=== PATIENT | female | born 1960 | race Caucasian/White ===

== ENCOUNTER 2017-02-28 18:53 | Inpatient (IN) | payer BC ==
[~2017-02-28] VITALS: Ht 157.5 cm; Wt 60.0 kg
[2017-02-28] MEDS ORDERED: SYNJARDY 12.5-11 TAB PO (19:13)
[2017-02-28] MEDS ORDERED: ALEVE220 M1 PO (19:13)
--- NOTE | 2017-02-28 19:15 | NUR ---
PT ASKED TO WAIT IN WAITING ROOM UNTIL A ROOM OPENS UP FOR TREATMENT. PT IN WC, W/ BY SIDE. PT IN STABLE CONDITION.
--- NOTE | 2017-02-28 19:38 | NUR ---
PT TRANSFERED TO ER ROOM 9 VIA WC. PT THEN AMBULATED TO BATHROOM UNASSISTED. @ BEDSIDE.
--- NOTE | 2017-02-28 19:39 | NUR ---
PT. WITH C/O DIABETIC FOOT ULCER TO SOLE OF LEFT FOOT FOR APPROX. 2-3 WEEKS. EDEMA NOTED TO LEFT FOOT. PLUSES +.
--- NOTE | 2017-02-28 20:27 | NUR ---
IVF, IV ABT. IV PAIN MED AND IV ANTIEMETIC GIVEN PER MD ORDER.
[2017-02-28 20:35] LABS: HEMOGLOBIN 12.8 g/dl (12.0-16.0); IMMATURE GRANULOCYTES 0.3 % (0.0-1.0); MEAN CELL VOLUME 89.6 fL CALC (80.0-100.0); MEAN CORPUSCULAR HGB 30.2 pG CALC (26.0-32.0); MEAN CORPUSCULAR HGB CONC 33.7 g/L CALC (32.0-36.0); NEUT# 7.5 thou/uL (2.00-7.15); RED BLOOD COUNT 4.24 mill/uL (4.20-5.60); RED CELL DISTRI WIDTH 11.9 % (11.5-15.5)
--- NOTE | 2017-02-28 20:44 | NUR ---
TURKEY SANDWICH GIVEN TO PT.
[2017-02-28 20:49] LABS: ALBUMIN 4.1 g/dL (3.2-5.0); ALKALINE PHOSPHATASE 139 u/l (38-126); ANION GAP 21 (6-22 (CALC)); BILIRUBIN, TOTAL 0.7 mg/dL (0.0-1.4); BUN 16 mg/dL (7-17); BUN/CREATININE RATIO 24 (12-20 (CALC)); CALCIUM 10.1 mg/dL (8.4-10.2); CARBON DIOXIDE 21 mmol/l (22-30); CHLORIDE 104 mmol/l (95-108); CREATININE 0.7 mg/dL (0.5-1.0); GFR > 60 ML/MIN (>=60 (CALC)); GFR FOR AFR.AMER. > 60 ML/MIN (>=60 (CALC)); GLUCOSE 148 mg/dL (65-105); POTASSIUM 3.9 mmol/l (3.5-5.1); SGOT/AST 17 u/l (14-36); SGPT/ALT 30 u/l (9-52); SODIUM 143 mmol/l (137-146)
--- NOTE | 2017-02-28 21:28 | NUR ---
pt. states her left foot pain is completly resolved.
--- NOTE | 2017-02-28 21:29 | NUR ---
PT. ATE 50% OF TURKEY SANDWICH.
--- NOTE | 2017-02-28 22:01 | NUR ---
MD IN ROOM TO DISCUSS CLINICAL FINDINGS WITH PT. AND ALSO MAKE HER AWARE OF ADMISSION. VERBALIZED UNDERSTANDING.
--- NOTE | 2017-02-28 22:45 | NUR ---
Admission Note Report Given to: MATI DICKERSON Transported by: Wheelchair X Stretcher Transported with: X Nurse Transporter X Patent IV O2 Janitorial Maintenance Worker
--- NOTE | 2017-02-28 23:28 | NUR ---
PT. TAKEN TO NM VIA STRETCHER.
--- NOTE | 2017-02-28 23:29 | NUR ---
PATIENT ARRIVED TO THE FLOOR IN STABLE CONDITION VIA STRETCHER AND ACCOMPANIED BY VIVIAN, ED STAFF. PATIENT SETTLED TO BED. [facility] PATIENT TO ROOM CALL SYSTEM. BED IN LOW POSITION AND CALL LIGHT INN REACH.
[2017-02-28 23:30] VITALS: BP 117/76
--- NOTE | 2017-03-01 04:00 | NUR ---
NO APPARENT ACUTE CHANGES NOTED IN PATIENT'S CONDITION.
[2017-03-01 04:40] VITALS: BP 112/66
[2017-03-01 05:27] LABS: HEMATOCRIT 33.6 % (37.0-47.0); MEAN CELL VOLUME 91.6 fL CALC (80.0-100.0); MEAN CORPUSCULAR HGB CONC 32.7 g/L CALC (32.0-36.0); RED BLOOD COUNT 3.67 mill/uL (4.20-5.60)
[2017-03-01 05:41] LABS: CHOLESTEROL HDL RATIO 4.9 (<4.4 (CALC))
[2017-03-01 06:37] LABS: URINE BILIRUBIN - DIPSTICK NEGATIVE (NEGATIVE); URINE BLOOD DIPSTICK MODERATE (NEGATIVE); URINE CLARITY CLEAR; URINE COLOR YELLOW; URINE GLUCOSE - DIPSTICK >=1000 mg/dL (NEGATIVE); URINE KETONE 40 mg/dL (NEGATIVE); URINE LEUK ESTERASE NEGATIVE (NEGATIVE); URINE PH 5.5 (4.5-8.0); URINE PROTEIN - DIPSTICK NEGATIVE (NEG-TRACE); URINE SPECIFIC GRAVITY 1.015; URINE UROBILINOGEN - DIPSTICK 0.2 E.U./dL (0.2)
[2017-03-01 06:42] LABS: URINE NITRITE - DIPSTICK POSITIVE (Negative)
[2017-03-01 06:49] LABS: URINE BACTERIA FEW hpf; URINE TRANSITIONAL EPI. CELLS RARE hpf
--- NOTE | 2017-03-01 07:00 | NUR ---
REPORT RECIEVED FROM TUAN THORNE. PT AWAKE ON ENTRY. PT HAS NO COMPLAINTS OF PAIN. SAFETY PRECAUTIONS IN PLACE. CALL LIGHT WITHIN REACH. WILL CONTINUE TO MAKE HOURLY ROUNDS.
[2017-03-01 08:16] VITALS: BP 104/63
--- NOTE | 2017-03-01 13:20 | NUR ---
PT OFF FLOOR WITH STAFF FOR CT.
--- NOTE | 2017-03-01 13:42 | NUR ---
Drug Selected: Vancomycin Age: 56 years Weight: 59 kg Height: 62 in Gender: Female SCR: 0.7 mg/dl Calculated Values: Dosing weight: 59 kg CRCL (ml/min): 72.7 Final Report: Give Vancomycin 1000 mg q12 hrs NEXT TROUGH WILL BE 03/03/17 AT 1130AM
--- NOTE | 2017-03-01 14:18 | NUR ---
PT BACK ON FLOOR FROM CT. PT NOW RESTING IN BED AND IVF RUNNING. IV SIGHT APPEARS HEALTHY. CALL LIGHT WITHIN REACH.
[2017-03-01 16:30] VITALS: BP 117/74
--- NOTE | 2017-03-01 18:00 | NUR ---
PT RESTING IN BED EATING DINNER WITH FAMILY AT BEDSIDE. IV SIGHT APPEARS HEALTHY. SAFETY PRECAUTIONS REINFORCED. CALL LIGHT WITHIN REACH.
--- NOTE | 2017-03-01 19:30 | NUR ---
RESTING IN BED, WATCHING TV, NO DISTRESS NOTED, DENIES NEEDS, RESP ARE EVEN AND UNLABORED, SIGNIFICANT OTHER AT BEDSIDE, CALL FERGUSON AT REACH, ENCOURAGED TO CALL IF NEEDED.
[2017-03-01 19:40] VITALS: BP 117/74
--- NOTE | 2017-03-01 22:51 | NUR ---
PT DENIES PAIN OR NEEDS AT THIS TIME, X2 GUARDS AT BEDSIDE, RESP ARE EVEN AND UNLABORED, PIPERACILLIN INFUSING WITHOUT DIFFICULTY, IV SITE IS INTACT. SOME RESEARCH KENNEL SUPERVISOR COUGH NOTED, ENCOURAGED TO CALL IF NEEDED, CALL FERGUSON AT REACH.
--- NOTE | 2017-03-02 00:29 | NUR ---
PT APPEARS TO BE SLEEPING WITH EYES CLOSED, EASILY AROUSES TO STIMULI, VOICES NO COMPLAINTS, WILL CONTINUE TO MONITOR.
--- NOTE | 2017-03-02 01:00 | NUR ---
VONCOMYCIN INFUSING WITHOUT DIFFICULTY, IV SITE IS FREE OR REDNESS OR EDEMA, PT APPEARS TO BE SLEEPING, RESPONDS TO VERBAL OR PHYSICAL STIMULI, NO DISTRESS NOTED, SAFETY MEASURES IN PLACE, ENCOURAGED TO CALL IF NEEDED, PROVIDED AN EXTRA PILLOW PER REQUEST. CALL FERGUSON AT REACH.
[2017-03-02 05:01] VITALS: BP 112/71
[2017-03-02 05:52] LABS: HEMOGLOBIN 10.4 g/dl (12.0-16.0); MEAN CELL VOLUME 92.5 fL CALC (80.0-100.0); MEAN CORPUSCULAR HGB 30.1 pG CALC (26.0-32.0); MEAN CORPUSCULAR HGB CONC 32.5 g/L CALC (32.0-36.0); RED BLOOD COUNT 3.46 mill/uL (4.20-5.60); RED CELL DISTRI WIDTH 12.1 % (11.5-15.5)
[2017-03-02 06:09] LABS: ANION GAP 20 (6-22 (CALC)); BUN 9 mg/dL (7-17); BUN/CREATININE RATIO 14 (12-20 (CALC)); CALCIUM 9.1 mg/dL (8.4-10.2); CARBON DIOXIDE 15 mmol/l (22-30); CHLORIDE 115 mmol/l (95-108); CREATININE 0.6 mg/dL (0.5-1.0); GFR > 60 ML/MIN (>=60 (CALC)); GFR FOR AFR.AMER. > 60 ML/MIN (>=60 (CALC)); GLUCOSE 103 mg/dL (65-105); POTASSIUM 4.5 mmol/l (3.5-5.1); SODIUM 145 mmol/l (137-146)
--- NOTE | 2017-03-02 07:00 | NUR ---
REPORT RECIEVED FROM TUAN SUAREZ. PT AWAKE ON ENTRY. NO COMPLAINTS OF PAIN FROM PT. IV SIGHT APPEARS HEALTHY. SAFETY PRECAUTIONS REINFORCED. CALL LIGHT WITHIN REACH. WILL CONTINUE TO MAKE HOURLY ROUNDS.
--- NOTE | 2017-03-02 07:25 | NUR ---
DR. FAITH IN ROOM WITH PT.
[2017-03-02 07:55] VITALS: BP 116/62
--- NOTE | 2017-03-02 13:00 | NUR ---
#20 IN LEFT AC NOT INFUSING. NEW IV STARTED. #20 IN THE RIGHT FOREARM.
[2017-03-02 16:40] VITALS: BP 115/75
[2017-03-02 18:00] VITALS: BP 101/64
--- NOTE | 2017-03-02 19:00 | NUR ---
RECEIVED CHANGE OF SHIFT REPORT FROM ESTEBAN FLOWERS. PATIENT LYING IN BED AND APPEARS NOT TO BE IN ANY APPARENT ACUTE DISRESSS. PATIENT DENIES PAIN. FAMILY AT BEDSIDE. WILL CONTINUE TO MOMITOR.
--- NOTE | 2017-03-02 19:07 | NUR ---
REPORT GIVEN TO TUAN THORNE. PT STABLE AT THIS TIME, SHOWS NO SIGNS OF DISTRESS. CALL LIGHT WITHIN REACH.
[2017-03-03] VITALS (12 sets, daily range): BP systolic 96–121; BP diastolic 56–71
--- NOTE | 2017-03-03 | NUR ---
PATIENT RESTING QUIETLY AT THIS TIME. NO APPARENT ACUTE DISTRESS NOTED.
--- NOTE | 2017-03-03 04:00 | NUR ---
NO APPARENT ACUTE CHANGES NOTED IN PATIENT'S CONDITION.
[2017-03-03 05:56] LABS: HEMATOCRIT 31.8 % (37.0-47.0); HEMOGLOBIN 10.4 g/dl (12.0-16.0); MEAN CELL VOLUME 92.2 fL CALC (80.0-100.0); MEAN CORPUSCULAR HGB 30.1 pG CALC (26.0-32.0); MEAN CORPUSCULAR HGB CONC 32.7 g/L CALC (32.0-36.0); RED BLOOD COUNT 3.45 mill/uL (4.20-5.60); RED CELL DISTRI WIDTH 12.4 % (11.5-15.5)
[2017-03-03 06:17] LABS: ANION GAP 20 (6-22 (CALC)); BUN 8 mg/dL (7-17); BUN/CREATININE RATIO 13 (12-20 (CALC)); CALCIUM 9.4 mg/dL (8.4-10.2); CARBON DIOXIDE 14 mmol/l (22-30); CHLORIDE 115 mmol/l (95-108); CREATININE 0.6 mg/dL (0.5-1.0); GFR > 60 ML/MIN (>=60 (CALC)); GFR FOR AFR.AMER. > 60 ML/MIN (>=60 (CALC)); GLUCOSE 142 mg/dL (65-105); POTASSIUM 5.1 mmol/l (3.5-5.1); SODIUM 144 mmol/l (137-146)
--- NOTE | 2017-03-03 07:44 | NUR ---
PT WENT TO OR VIA STRETCHER ACCOMPANIED BY STAFF AND FAMILY. IV SITE IS FREE FROM REDNESS OR EDEMA. CONTINUE TO OBSERVE AND MONITOR.
--- NOTE | 2017-03-03 10:27 | NUR ---
PT RETURNED FROM OR VIA STRETCHER ACCOMPANIED AT 1005 DRESSING INTACT. IV SITE INTACT, SCD'S IN PLACE.
--- NOTE | 2017-03-03 11:00 | NUR ---
ASSESSMENT IS COMPLETED. PT IS HAVING NO C/O PAIN AT THIS TIME. IV SITE IS FREE FROM REDNESS OR EDEMA. DRESSING ON LEFT FOOT IS CDI. CONTINUE TO OSBERVE AND MONITOR.
--- NOTE | 2017-03-03 14:04 | NUR ---
S: ROSARIO ANNE is a 56 F who presents with foot infx, osteomyelitis pending/possible. She has a history of diabetes and ulcers. All medications in patient's chart were reviewed. O: VS: BP 129/75, P 99, RR 14, T 97.1 W 60 kg, HT 62 in, Scr 0.6 Vancomycin trough on 03/03/17 @ 1150 = 9 mcg/mL A: Blood and wound cultures are pending. P: Pt is also on Zosyn 3.375 g IV q6h. Vancomycin ordered for pharmacy to dose. Change Vancomycin to vancomycin 750 mg IV Q8H. Vancomycin trough is to be drawn before the 5th dose on 03/05/17 @ 0530. Vancomycin goal trough is between 15-20 mcg/ml. Pharmacy will follow and or advise on antibiotics use as needed.
--- NOTE | 2017-03-03 16:00 | NUR ---
PT IS RELAXING IN BED WITH NO DISTRESS NOTED. IV SITE IS FREE FROM REDNESS OR EDEMA. CONTINUE TO OBSERVE AND MONITOR.
--- NOTE | 2017-03-03 20:15 | NUR ---
PATIENT RESTING IN BED AT THIS TIME WITH LEFT FOOT ELEVATED ON PILLOWS WITH ICE TO FOOT. CMS TO LEFT FOOT WNL. DRESSING SECURED WITH MICHAEL WRAP IN PLACE-CDI. PATIENT MEDICATED FOR C/O POST-OP PAIN WITH PERCOCET ORDERED. SAFETY PRECAUTIONS IN PLACE. NWB STATUS MAINTAINED. CALL LIGHT IN REACH. WILL CONT TO MONITOR.
--- NOTE | 2017-03-04 04:00 | NUR ---
PATIENT APPEARS SLEEPING AT THIS TIME. CALL LIGHT IN REACH. WILL CONT TO MONITOR.
[2017-03-04 05:04] LABS: HEMATOCRIT 30.2 % (37.0-47.0); HEMOGLOBIN 9.7 g/dl (12.0-16.0); IMMATURE GRANULOCYTES 1.9 % (0.0-1.0); MEAN CELL VOLUME 92.9 fL CALC (80.0-100.0); MEAN CORPUSCULAR HGB 29.8 pG CALC (26.0-32.0); MEAN CORPUSCULAR HGB CONC 32.1 g/L CALC (32.0-36.0); NEUT# 5.66 thou/uL (2.00-7.15); RED BLOOD COUNT 3.25 mill/uL (4.20-5.60); RED CELL DISTRI WIDTH 12.7 % (11.5-15.5)
[2017-03-04 05:17] LABS: ANION GAP 17 (6-22 (CALC)); BUN 9 mg/dL (7-17); BUN/CREATININE RATIO 13 (12-20 (CALC)); CALCIUM 8.9 mg/dL (8.4-10.2); CARBON DIOXIDE 16 mmol/l (22-30); CHLORIDE 117 mmol/l (95-108); CREATININE 0.7 mg/dL (0.5-1.0); GFR > 60 ML/MIN (>=60 (CALC)); GFR FOR AFR.AMER. > 60 ML/MIN (>=60 (CALC)); GLUCOSE 159 mg/dL (65-105); POTASSIUM 4.7 mmol/l (3.5-5.1); SODIUM 144 mmol/l (137-146)
[2017-03-04 05:25] VITALS: BP 105/61
--- NOTE | 2017-03-04 05:26 | NUR ---
PATIENT APPEARS SLEEPING AT THIS TIME. IVF AT KVO RATE PER MD ORDER. LEFT FOOT ELEVATED ON PILLOWS. CALL LIGHT IN REACH. WILL CONT TO MONITOR.
--- NOTE | 2017-03-04 08:00 | NUR ---
ASSESSMENT IS COMPLETED: PT IS RESTING IN BED WITH MO DISTRESS NOTED. IV SITE IS FREE FROM REDNESS OR EDEMA. CONTINUE TO OSBERVE AND MONITOR.
[2017-03-04 11:00] VITALS: BP 110/65
--- NOTE | 2017-03-04 11:57 | NUR ---
IN TO VISIT WITH PT AND CHANGED DRESSING , EXPLAINED TO PT RE: INFECTION ON HER TOE. AND THEN WILL HAVE GO IN AND RECLEAN AREA TOMORROW AND POSSIBLY WILL NEED TO HAVE IV ABTS WHEN DISCHARGED.
--- NOTE | 2017-03-04 12:00 | NUR ---
PT IS RELAXING IN BED WITH NO DISTRESS NOTED. IV SITE IS FREE FROM REDNESS OR EDEMA. CONTINUE TO OBSERVE AND MONITOR.
--- NOTE | 2017-03-04 12:51 | NUR ---
Patient seen this morning approximately 9:45 AM for gait training with crutches. Pt. education for sit to stand and step to gait pattern using axillary crutches and NWB on left LE. Pt. did not have complaints of foot pain at the time of treatment. Gait belt and non skid socks applied prior to gait training. Sit to stand with min. assist x1 and crutches. Pt. took 7 to steps to recliner with min. assist x1 using axillary crutches. pt. then took one sitting rest period followed by 7 steps back to bed. Verbal and tactile cues given throughout treatment for proper sequencing. Pt. independent back to bed with left LE elevated on pillow. Call light and bedside table left within reach. Pt. instructed to call nursing for assistance with mobility out of bed. Patient was compliant with NWB on left LE. Nurse informed of same.
--- NOTE | 2017-03-04 15:34 | NUR ---
SPOKE WITH DR. MCKNIGHT RE: SURGERY IN THE AM. IV SITE IS FREE FROM REDNESS OR EDEMA. INFORMED PT. CONTINUE TO OBSERVE AND MONITOR.
[2017-03-04 16:00] VITALS: BP 119/72
--- NOTE | 2017-03-04 16:15 | NUR ---
PT IS RELAXING IN BED WITH NO DISTRESS NOTED. IV SITE IS FREE FROM REDNESS OR EDEMA. CONTINUE TO OSBERVE AND MONITOR.
[2017-03-04 18:00] VITALS: BP 135/73
--- NOTE | 2017-03-04 19:30 | NUR ---
PATIENT RESTING IN BED WITH LEFT FOOT ELEVATED ON PILLOWS. AWAKE ALERT AND ORIENTEDX3 C/O POST-OP LEFT FOOT PAIN-MEDICATED WITH PERCOCET TABS 2 FOR PAIN. LEFT FOOT DRESSING CLEAN DRY AND INTACT SECURED WITH MICHAEL WRAP. CMS CHECK TO LEFT TOES WNL. PATIENT WITH IV SITE TO LEFT FOREARM INTACT AND APPEARS HEALTHY WITH IVF NS PATENT AND INFUSING AT KVO RATE. SAFETY PRECAUTIONS REINFORCED. CALL LIGHT IN REACH. WILL CONT TO MONITOR.
--- NOTE | 2017-03-04 23:00 | NUR ---
PATIENT RESTING IN BED WITH LEFT FOOT ELEVATED ON PILLOWS. DRESSING CDI AT THIS TIME. CMS TO LEFT FOOT WNL. REINFORCED WITH PATIENT NPO FOR OR IN AM-HS SNACK WAS PROVIDED. IV VANCO INFUSING ORDERED. CALL LIGHT IN REACH. WILL CONT TO MONITOR.
[2017-03-05] VITALS (10 sets, daily range): BP systolic 98–136; BP diastolic 52–82
--- NOTE | 2017-03-05 04:00 | NUR ---
PATIENT APPEARS SLEEPING WITH EYES CLOSED AT THIS TIME. LEFT FOOT ELEVATED ON PILLOWS. PATIENT NPO FOR OR IN AM. CALL LIGHT IN REACH. WILL CONT TO MONITOR.
[2017-03-05 05:36] LABS: HEMATOCRIT 29.1 % (37.0-47.0); HEMOGLOBIN 9.5 g/dl (12.0-16.0); IMMATURE GRANULOCYTES 2.7 % (0.0-1.0); MEAN CELL VOLUME 90.7 fL CALC (80.0-100.0); MEAN CORPUSCULAR HGB 29.6 pG CALC (26.0-32.0); MEAN CORPUSCULAR HGB CONC 32.6 g/L CALC (32.0-36.0); NEUT# 2.86 thou/uL (2.00-7.15); RED BLOOD COUNT 3.21 mill/uL (4.20-5.60); RED CELL DISTRI WIDTH 12.8 % (11.5-15.5)
[2017-03-05 05:57] LABS: ANION GAP 14 (6-22 (CALC)); BUN 9 mg/dL (7-17); BUN/CREATININE RATIO 14 (12-20 (CALC)); CARBON DIOXIDE 18 mmol/l (22-30); CHLORIDE 114 mmol/l (95-108); CREATININE 0.6 mg/dL (0.5-1.0); GFR > 60 ML/MIN (>=60 (CALC)); GFR FOR AFR.AMER. > 60 ML/MIN (>=60 (CALC)); GLUCOSE 144 mg/dL (65-105); POTASSIUM 4.1 mmol/l (3.5-5.1); SODIUM 142 mmol/l (137-146)
--- NOTE | 2017-03-05 06:24 | NUR ---
PATIENT MEDICATED FOR PAIN WITH PERCOCET TABS 2. RESTING IN BED WITH LEFT FOOT ELEVATED. CALL LIGHT IN REACH. WILL CONT TO MONITOR.
--- NOTE | 2017-03-05 07:25 | NUR ---
REPORT RECEIVED FROM NIGHT NURSE, PT.IN BED W/LIGHTS LOW, AWAKENED WE ENTERED ROOM. PT.DENIES ANY NEEDS AT THIS TIME, NO S/S OF DISTRESS, CALL LIGHT IS AT SIDE AND PT.ADVISED TO CALL IF ANY NEEDS ARISE
--- NOTE | 2017-03-05 12:15 | NUR ---
PT.OFF THE FLOOR ACCOMPANIED BY OR NURSE, PT.IS IN GOOD CONDITION AT TIME LEAVING THE FLOOR.
--- NOTE | 2017-03-05 12:35 | NUR ---
S: ROSARIO ANNE is a 56 F who presents with diabetic foot ulcer, osteomyelitis of ankle. She has a history of diabetes. All medications in patient's chart were reviewed. O: VS: BP 105/63, P 93, RR 16,T 97.7 W 60 kg, HT 5'2", Scr=0.6, CrCl= 101.2 ml/min A: Wound culture shows which is sensitive to vancomycin. Blood culture shows no growth. P: Patient is on vancomycin 750mg IV Q8H. Trough from 03/05/2017 was 15 mcg/ml. Next vancomycin trough will be drawn before the 4th dose on 03/06/2017 @ 0530. Vancomycin goal trough is between 15-20 mcg/ml (osteomyelitis). Pharmacy will follow and or advise on antibiotics use as needed.
--- NOTE | 2017-03-05 15:27 | NUR ---
PT.BACK ON FLOOR FROM OR ACCOMPANIED BY OR NURSE, PT.APPEARS TO BE IN GOOD CONDITION, ALERT/SLIGHLY GROGGY, BUT FOLLOWS INSTRUCTIONS. PT.IS ASKING FOR FOOD, I EXPLAINED TO HER ABOUT TAKING IT SLOWLY STARTING HER OUT WITH ICE-CHIPS, WATER AND PROGRESS FROM THER ORDERS PROVIDE. PT.IS IN AND OUT OF SLEEP. V/S BEING ARE GOOD B/P 130/70, HR 78, O2 SAT LEVELS ARE 88%/PT.PLACED ON O2@2L UNTIL SAT.LEVELS IMPROVE ON RA. ANTIBIOTIC THERAPY IS RUNNING,ALMOST COMPLETE AND IV FLUIDS ARE ALSO RUNNING @10. LEFT FOOT IS WRAPPED W/MICHAEL WRAP CDI AND ELEVATED ON TWO PILLOWS. IS AT BS, PT.PROVIDED W/ICE CHIPS, CALL LIGHT W/IN REACH.
--- NOTE | 2017-03-05 19:30 | NUR ---
PATIENT RESTING IN BED AT THIS TIME WITH LLE ELEVATED ON PILLOWS WITH ICE PACKS TO FOOT AND ANKLES. MULTIPLE VISITORS IN ROOM. NO COMPLAINTS AT THIS TIME. CALL LIGHT IN REACH. WILL CONT TO MONITOR.
--- NOTE | 2017-03-05 22:09 | NUR ---
PATIENT ASSISTED UP TO THE BSC TO VOID 900CC OF YELLOW URINE-MAINTAINED NWB STATUS AND BACK TO BED. PATIENT MEDICATED FOR POST-OP PAIN TO LLE WITH PERCOCET TABS 2 FOR 6/10 ON PAIN SCALE. LLE ELEVATED ON PILLOWS. CMS TO LLE WNL. VANCO INFUSING ORDERED VIA RIGHT UPPER ARM PICC-SITE APPEARS HEALTHY AT THIS TIME. SAFETY PRECAUTIONS REINFORCED. CALL LIGHT IN REACH. WILL CONT TO MONITOR.
[2017-03-06 04:40] VITALS: BP 120/74
--- NOTE | 2017-03-06 05:34 | NUR ---
PATIENT RESTING IN BED AT THIS TIME-LAB WORK DRAWN FRON RIGHT ARM PICC WITHOUT ANY DIFFICULTY-GOOD BLOOD RETURN. FLUSHED PER PROTOCOL AND IVF RECONNECTED. PATIENT WITH NO COMPLAINTS AT THIS TIME. CALL LIGHT IN REACH. WILL CONT TO MONITOR.
[2017-03-06 05:46] LABS: HEMATOCRIT 27.9 % (37.0-47.0); IMMATURE GRANULOCYTES 3.4 % (0.0-1.0); MEAN CELL VOLUME 92.4 fL CALC (80.0-100.0); MEAN CORPUSCULAR HGB 29.8 pG CALC (26.0-32.0); MEAN CORPUSCULAR HGB CONC 32.3 g/L CALC (32.0-36.0); NEUT# 3.15 thou/uL (2.00-7.15); RED BLOOD COUNT 3.02 mill/uL (4.20-5.60); RED CELL DISTRI WIDTH 12.9 % (11.5-15.5)
--- NOTE | 2017-03-06 07:13 | NUR ---
REPORT RECEIVED FROM NIGHT NURSE, PT.IN RECLINER W/FEET ELEVATED AND BLANKETS COVERING, BST IN FRONT OF PT.W/CALL LIGHT IN PLACE. PT.DENIES ANY NEEDS AND IS AWAITING BREAKFAST. REPORTS THAT HE SLEPT BETTER LAST NIGHT. WILL FOLLOW UP W/V/S AND ASSESSMENT ALONG W/MORNING MEDICATIONS ORDERED
--- NOTE | 2017-03-06 07:15 | NUR ---
REPORT RECEIVED FROM NIGHT NURSE, PT.IN BED W/LIGHTS LOW, AWAKENED TO OUR VOICES. PT.REPORTS THAT PAIN LEVEL IS STARTING TO COME DOWN IN RESPONSE TO PAIN MEDICATIONS JUST PREVIOUSLY GIVEN W/IN LAST HALF HOUR. DENIES ANY OTHER NEEDS AT THIS TIME, CALL LIGHT IS AT SIDE
[2017-03-06 08:15] VITALS: BP 133/77
--- NOTE | 2017-03-06 08:54 | NUR ---
PT.IN BED WATCHING TV, NO S/S OF DISTRESS OR COMPLAINTS. PAIN REPORTED AT A 1/10. LUNG SOUNDS ARE CLEAR, PT.LOCX3, DRESSING MICHAEL WRAP TO LEFT LOWER LEG IS CDI, GOOD COLOR/TEMP/MOVEMENT TO TOES. PT.DENIES ANY OTHER NEEDS AT THIS TIME. PT.MEDICATED W/AM MEDICATIONS AND INSTRUCTED TO CALL IF ANY NEEDS ARISE, CALL LIGHT W/IN HAND
--- NOTE | 2017-03-06 11:16 | NUR ---
PT WAS ABLE TO SUPINE TO SIT AND SIT TO STAND SAFELY AND INDEPENDENTLY. MAINTAINED STANDING POSITION WITH AXILLARY CRUTCHES AND SBA. AMBULATED BEDSIDE WITH CRUTCHES AND CGA ~30 FT. PT STATES THAT SHE WAS HAVING A HARD TIME LIFTING HER L LEG BEC IT WAS HEAVY. ALSO ADDED THAT SHE FEELS DIZZY BEC OF THE PAIN PILL SHE TOOK. ASSISTED PT BACK TO SITTING POSITION IN THE BED WITH VERBAL CUEING. NO ADVERSE RXNS STATED OR NOTED AT THE END OF TX. ATTACHMENTS BACK IN PLACE. CALL FERGUSON WITHING REACH.
[2017-03-06] MEDS ORDERED: ROCEPHIN 2 GM2 GM IV (13:24)
[2017-03-06] MEDS ORDERED: ATORVASTATIN CA10 MG PO (13:24)
[2017-03-06] MEDS ORDERED: JANUVIA100 MG PO (13:24)
[2017-03-06] MEDS ORDERED: METFORMIN1000 MG PO (13:24)
[2017-03-06] MEDS ORDERED: LORTAB5 PO (13:24)
[2017-03-06] MEDS ORDERED: EC ASPIRIN325 MG PO (14:57)
--- NOTE | 2017-03-06 16:35 | NUR ---
PT.MEDICATED WITH ROCEPHIN AND FOR PAIN BEFORE BEING DISCHARGED. PT.IS IN GOOD CONDITION W/ AT SIDE.
--- NOTE | 2017-03-06 17:10 | NUR ---
PT.OFF THE UNIT, DISCHARGED IN GOOD CONDITION VIA WC ACCOMPANIED BY
== END 2017-03-06 17:05 | disposition home health service (06) | DRG 629 ==
LOC: ED 18:53 → ED-I 21:48 → ED 22:15 → MS2 22:16
PROVIDERS: Emergency Medicine; Nurse Practitioner Family; ADMIT Internal Medicine; ATTEND Internal Medicine
PROC: 0JDR3ZZ Extraction of Left Foot Subcutaneous Tissue and Fascia, Percutaneous Approach (ICD-10-PCS; 2017-03-02)
PROC: 0H9NXZX Drainage of Left Foot Skin, External Approach, Diagnostic (ICD-10-PCS; 2017-03-02)
PROC: 0QBP0ZX Excision of Left Metatarsal, Open Approach, Diagnostic (ICD-10-PCS; 2017-03-03)
PROC: 0J9R0ZX Drainage of Left Foot Subcutaneous Tissue and Fascia, Open Approach, Diagnostic (ICD-10-PCS; 2017-03-03)
PROC: 0QBP0ZZ Excision of Left Metatarsal, Open Approach (ICD-10-PCS; principal; 2017-03-05)
PROC: 0KNT0ZZ Release Left Lower Leg Muscle, Open Approach (ICD-10-PCS; 2017-03-05)
PROC: 02HV33Z Insertion of Infusion Device into Superior Vena Cava, Percutaneous Approach (ICD-10-PCS; 2017-03-05)
PROC: B518ZZA Fluoroscopy of Superior Vena Cava, Guidance (ICD-10-PCS; 2017-03-05)
DX: E11.69 Type 2 diabetes mellitus with other specified complication (principal); L97.429 Non-pressure chronic ulcer of left heel and midfoot with unspecified severity; M86.9 Osteomyelitis, unspecified; E11.621 Type 2 diabetes mellitus with foot ulcer; L03.116 Cellulitis of left lower limb; L02.612 Cutaneous abscess of left foot; E11.628 Type 2 diabetes mellitus with other skin complications; E11.65 Type 2 diabetes mellitus with hyperglycemia; S90.822A Blister (nonthermal), left foot, initial encounter; E78.5 Hyperlipidemia, unspecified; L84 Corns and callosities; B95.1 Streptococcus, group B, as the cause of diseases classified elsewhere; X58.XXXA Exposure to other specified factors, initial encounter; Y93.01 Activity, walking, marching and hiking; Y92.89 Other specified places as the place of occurrence of the external cause; Z79.84 Long term (current) use of oral hypoglycemic drugs
CPT/HCPCS: J1650; J3370; Q9967